=== PATIENT | male | born 1935 | race Caucasian/White ===

== ENCOUNTER 2018-06-05 12:16 | Emergency (ER) | payer OTHER ==
[2018-06-05 12:51] LABS: ADD MAN DIFF? NO
[2018-06-05 12:52] LABS: BASOPHILS % 0.2 % (0.0-2.0); EOSINOPHILS % 0.1 % (0.0-7.0); HEMATOCRIT 41.8 % (42.0-52.0); HEMOGLOBIN 14.2 g/dl (14.0-18.0); LYMPHOCYTES # 1.9 10^3/ul (0.8-2.9); LYMPHOCYTES % 17.4 % (15.0-51.0); MEAN CORPUSCULAR HEMOGLOBIN 32.2 pg (29.0-33.0); MEAN CORPUSCULAR VOLUME 94.8 fl (82.0-101.0); MEAN PLATELET VOLUME 9.9 fl (7.4-10.4); MONOCYTE # 0.9 10^3/ul (0.3-0.9); MONOCYTES % 8.6 % (0.0-11.0); NEUTROPHIL # 7.8 10^3/ul (1.6-7.5); NEUTROPHILS % 73.2 % (39.0-77.0); PLATELET COUNT 263 10^3/UL (140-415); RED BLOOD COUNT 4.41 10^6/ul (4.70-6.10); RED CELL DISTRIBUTION WIDTH 12.1 % (11.5-14.5)
[2018-06-05 12:52] LABS: WHITE BLOOD COUNT 10.6 10^3/ul (4.8-10.8)
[2018-06-05] MEDS: METHYLPREDNISOLONE 125 MG INJ IV (12:52)
[2018-06-05] MEDS: ALBUTEROL 0.5% (NEB) 2.5 MG/0.5 ML AMP INH (13:05)
[2018-06-05] MEDS: IPRATROPIUM (NEB) 0.5 MG/2.5 ML AMP INH (13:05)
[2018-06-05 13:09] LABS: ALANINE AMINOTRANSFERASE 43 IU/L (13-69); ALBUMIN 3.3 g/dl (3.3-4.9); ALBUMIN/GLOBULIN RATIO 1.06; ALKALINE PHOSPHATASE 44 IU/L (42-121); ANION GAP 12 (8-16); ASPARTATE AMINO TRANSFERASE 39 IU/L (15-46); BILIRUBIN,INDIRECT 0.5 mg/dl (0-1.1); BILIRUBIN,TOTAL 0.5 mg/dl (0.2-1.3); BLOOD UREA NITROGEN 15 mg/dl (7-20); CALCIUM 9.3 mg/dl (8.4-10.2); CARBON DIOXIDE 34 mmol/L (21-31); CHLORIDE 88 mmol/L (97-110); CREATININE 0.47 mg/dl (0.61-1.24); GLUCOSE 150 mg/dl (70-220); POTASSIUM 3.5 mmol/L (3.5-5.1); SODIUM 130 mmol/L (135-144); TOTAL PROTEIN 6.4 g/dl (6.1-8.1)
[2018-06-05 13:12] LABS: INR 0.91; PARTIAL THROMBOPLASTIN TIME 23.5 Sec (23.0-35.0); PROTIME 12.3 Sec (11.9-14.9)
[2018-06-05 13:16] LABS: LACTIC ACID 1.4 mmol/L (0.5-2.0)
[2018-06-05 13:18] LABS: B-TYPE NATRIURETIC PEPTIDE 100 PG/ML (0-450)
[2018-06-05 14:45] LABS: ADD UMIC YES; UR ASCORBIC ACID NEGATIVE (NEGATIVE); UR BACTERIA FEW /HPF (NONE SEEN); UR BILIRUBIN (Dip) NEGATIVE (NEGATIVE); UR BLOOD (Dip) NEGATIVE (NEGATIVE); UR CLARITY CLEAR (CLEAR); UR COLOR YELLOW (YELLOW); UR GLUCOSE (Dip) NEGATIVE (NEGATIVE); UR KETONES (Dip) TRACE mg/dL (NEGATIVE); UR LEUKOCYTE ESTERASE (Dip) NEGATIVE Leu/ul (NEGATIVE); UR NITRITE (Dip) NEGATIVE (NEGATIVE); UR RBC 4 /HPF (0-5); UR TOTAL PROTEIN (Dip) 1+ mg/dl (NEGATIVE); UR UROBILINOGEN (Dip) 1+ mg/dL (NEGATIVE); UR WBC 2 /HPF (0-5)
[2018-06-05 14:58] LABS: AADO2 Arterial 33.9 mmHg (7.0-24.0); Arterial Base Excess 6.1 mmol/L (-3.0-3); Arterial COHb 0.7 % (0.0-3.0); Arterial Fraction of Oxyhgb 95.1 % (93.0-99.0); Arterial MetHb 0.2 % (0.0-1.5); Arterial Total Hemglobin 15.1 g/dl (12.0-18.0); Arterial pCO2 63.1 mmhg (35-45); MODE NASAL CANNULA; Site Right Brachial
[2018-06-05 17:16] LABS: TROPONIN-I < 0.012 ng/ml (0.000-0.120)
== END 2018-06-05 16:34 | disposition short-term general hospital (02) ==
LOC: E/R 16:34
DX: J44.1 Chronic obstructive pulmonary disease with (acute) exacerbation (principal); I10 Essential (primary) hypertension; R06.02 Shortness of breath; Z79.82 Long term (current) use of aspirin
CPT/HCPCS: 36415; 36600; 71045; 80053; 81001; 82803; 83605; 83880; 84484; 85025; 85610; 85730; 93005; 94644; 94660; 96374; 99291-25

== ENCOUNTER 2018-10-13 17:57 | Emergency (ER) | payer OTHER ==
[2018-10-13 18:48] LABS: ADD MAN DIFF? NO
[2018-10-13 18:54] LABS: BASOPHILS % 0.2 % (0.0-2.0); EOSINOPHILS # 0.2 10^3/ul (0.0-0.5); EOSINOPHILS % 1.6 % (0.0-7.0); HEMOGLOBIN 11.3 g/dl (14.0-18.0); LYMPHOCYTES # 2.3 10^3/ul (0.8-2.9); LYMPHOCYTES % 23.6 % (15.0-51.0); MEAN CORPUSCULAR HEMOGLOBIN 29.5 pg (29.0-33.0); MEAN CORPUSCULAR HGB CONC 30.5 g/dl (32.0-37.0); MEAN CORPUSCULAR VOLUME 96.6 fl (82.0-101.0); MEAN PLATELET VOLUME 9.9 fl (7.4-10.4); MONOCYTES % 10.2 % (0.0-11.0); NEUTROPHIL # 6.2 10^3/ul (1.6-7.5); NEUTROPHILS % 63.8 % (39.0-77.0); PLATELET COUNT 183 10^3/UL (140-415); RED BLOOD COUNT 3.83 10^6/ul (4.70-6.10); RED CELL DISTRIBUTION WIDTH 12.7 % (11.5-14.5)
[2018-10-13 18:54] LABS: WHITE BLOOD COUNT 9.7 10^3/ul (4.8-10.8)
[2018-10-13 19:07] LABS: ADD UMIC YES; UR AMORPHOUS CRYSTAL MANY /HPF (NONE SEEN); UR ASCORBIC ACID NEGATIVE (NEGATIVE); UR BACTERIA FEW /HPF (NONE SEEN); UR BILIRUBIN (Dip) NEGATIVE (NEGATIVE); UR BLOOD (Dip) NEGATIVE (NEGATIVE); UR CLARITY CLOUDY (CLEAR); UR COLOR YELLOW (YELLOW); UR GLUCOSE (Dip) NEGATIVE (NEGATIVE); UR KETONES (Dip) NEGATIVE (NEGATIVE); UR LEUKOCYTE ESTERASE (Dip) NEGATIVE Leu/ul (NEGATIVE); UR MUCUS FEW /HPF (NONE SEEN); UR NITRITE (Dip) NEGATIVE (NEGATIVE); UR RBC 12 /HPF (0-5); UR TOTAL PROTEIN (Dip) 1+ mg/dl (NEGATIVE); UR UROBILINOGEN (Dip) 1+ mg/dL (NEGATIVE); UR WBC 8 /HPF (0-5)
[2018-10-13 19:09] LABS: HEMOGLOBIN A1C 5.1 % (0-5.9)
[2018-10-13 19:13] LABS: INR 0.86; PROTIME 11.8 Sec (11.9-14.9); PT RATIO 0.9
[2018-10-13 19:14] LABS: BLOOD UREA NITROGEN 13 mg/dl (7-20); CALCIUM 8.9 mg/dl (8.4-10.2); CHLORIDE 84 mmol/L (97-110); CHOL/HDL RATIO 2.7 RATIO; CHOLESTEROL 156 mg/dl (100-200); CREATININE 0.37 mg/dl (0.61-1.24); GLUCOSE 124 mg/dl (70-220); HDL CHOLESTEROL 56 mg/dl (31-75); LDL CHOLESTEROL,CALCULATED 81 mg/dl; PARTIAL THROMBOPLASTIN TIME 24.4 Sec (23.0-35.0); POTASSIUM 4.1 mmol/L (3.5-5.1); SODIUM 131 mmol/L (135-144); TRIGLYCERIDES 95 mg/dl (0-149)
[2018-10-13 19:21] LABS: AMPHETAMINE/METHAMPHETAMINE Negative (NEGATIVE); BARBITURATES Negative (NEGATIVE); BENZODIAZEPINES Negative (NEGATIVE); CANNABINOIDS Negative (NEGATIVE); COCAINE Negative (NEGATIVE); OPIATES Negative (NEGATIVE)
[2018-10-13 19:23] LABS: ANION GAP 0 (5-13)
[2018-10-13 19:24] LABS: CARBON DIOXIDE 47 mmol/L (21-31)
[2018-10-13 19:25] LABS: TROPONIN-I < 0.012 ng/ml (0.000-0.120)
[2018-10-13] MEDS: ASPIRIN 325 MG TAB PO (19:34)
== END 2018-10-13 21:45 | disposition short-term general hospital (02) ==
LOC: E/R 17:57
DX: I63.9 Cerebral infarction, unspecified (principal); I10 Essential (primary) hypertension; J44.9 Chronic obstructive pulmonary disease, unspecified; R40.2252 Coma scale, best verbal response, oriented, at arrival to emergency department; R40.2362 Coma scale, best motor response, obeys commands, at arrival to emergency department; R40.2142 Coma scale, eyes open, spontaneous, at arrival to emergency department
CPT/HCPCS: 36415; 70450; 71045; 80048; 80061; 80307; 81001; 82962; 83036; 84484; 85025; 85610; 85730; 93005; 99291-25